=== PATIENT | male | born 2000 | race African-American/Black ===

== ENCOUNTER 2024-09-05 18:12 | Inpatient (IN) | payer SELFPAY ==
[2024-09-05] MEDS ORDERED: Ipratropium/Albuterol 3 ML NEB NEB PRN (18:46)
[2024-09-05] MEDS ORDERED: Ondansetron PF 4 MG/2 ML Vial IVP PRN (18:46)
[2024-09-05] MEDS: Sodium Chloride 0.9% 1,000 ML IV SCH (19:53)
[2024-09-05] MEDS: Piperacillin/Tazobactam 3.375 GM in Sodium Chloride 0.9% 100 ML IVPB SCH (19:54)
[2024-09-05] MEDS: Morphine 2 MG/ML VIAL SLOW IVP PRN (19:55)
[2024-09-05 20:27] LABS: #Basophils 0.06 10x3/uL (0.0-0.2); %Basophils 0.6 % (0.0-1.0); %Eosinophils 0.9 % (0.0-10.0); %Lymphocytes 24.2 % (21.0-51.0); %Monocytes 7.3 % (0.0-10.0); %Neutrophils 66.6 % (42.0-75.0); Hematocrit 43.2 % (42.0-52.0); Hemoglobin 14.8 g/dL (14.0-18.0); Mean Corpuscular HGB CONC 34.3 g/dL (32.0-36.0); Mean Corpuscular Volume 87.6 fL (78.0-98.0); Mean Platelet Volume 8.8 fL (7.4-10.4); Platelet Count 252 10x3/uL (130-400); RBC Distribution Width 13.2 % (11.5-14.5); Red Blood Cell (RBC) Count 4.93 mill/uL (4.70-6.10)
[2024-09-05 20:44] LABS: ALT (SGPT) 268 U/L (8-55); AST (SGOT) 117 U/L (5-34); Albumin 3.5 g/dL (3.5-5.0); Alkaline Phosphatase 181 U/L (40-110); Anion Gap 12 mmol/L (10-20); BUN (Urea Nitrogen) 8 mg/dL (8.9-20.6); Bilirubin, Total 1.1 mg/dL (0.2-1.2); Calc. Creatinine Clearance 1 mL/min (70-130); Calcium 8.8 mg/dL (7.8-10.44); Carbon Dioxide 23 mmol/L (22-29); Chloride 106 mmol/L (98-107); Estimated GFR 127; Globulin 2.9 g/dL (2.4-3.5); Glucose 105 mg/dL (70-105); Potassium 3.6 mmol/L (3.5-5.1); Protein, Total 6.4 g/dL (6.0-8.3); Sodium 137 mmol/L (136-145)
[2024-09-06] MEDS: Piperacillin/Tazobactam 3.375 GM in Sodium Chloride 0.9% 100 ML IVPB SCH (00:18)
[2024-09-06] MEDS: Piperacillin/Tazobactam 3.375 GM VIAL ONE (00:21)
[2024-09-06 05:07] LABS: #Basophils 0.04 10x3/uL (0.0-0.2); %Basophils 0.5 % (0.0-1.0); %Eosinophils 1.4 % (0.0-10.0); %Lymphocytes 30.8 % (21.0-51.0); %Monocytes 7.9 % (0.0-10.0); Hematocrit 48.1 % (42.0-52.0); Hemoglobin 16.1 g/dL (14.0-18.0); Mean Corpuscular HGB CONC 33.5 g/dL (32.0-36.0); Mean Corpuscular Hemoglobin 29.7 pg (27.0-31.0); Mean Corpuscular Volume 88.7 fL (78.0-98.0); Mean Platelet Volume 8.8 fL (7.4-10.4); Platelet Count 273 10x3/uL (130-400); RBC Distribution Width 13.5 % (11.5-14.5); Red Blood Cell (RBC) Count 5.42 mill/uL (4.70-6.10)
[2024-09-06 05:18] LABS: INR-International Normal Ratio 0.9; Prothrombin Time 12.6 sec (12.0-14.7)
[2024-09-06 05:19] LABS: PTT 30.1 sec (22.9-36.1)
[2024-09-06 05:23] LABS: Anion Gap 13 mmol/L (10-20); BUN (Urea Nitrogen) 7 mg/dL (8.9-20.6); Calc. Creatinine Clearance 1 mL/min (70-130); Calcium 9.4 mg/dL (7.8-10.44); Carbon Dioxide 26 mmol/L (22-29); Chloride 104 mmol/L (98-107); Estimated GFR 121; Glucose 100 mg/dL (70-105); Potassium 3.8 mmol/L (3.5-5.1); Sodium 139 mmol/L (136-145)
[2024-09-06 05:59] LABS: ALT (SGPT) 304 U/L (8-55); AST (SGOT) 123 U/L (5-34); Albumin 3.9 g/dL (3.5-5.0); Alkaline Phosphatase 198 U/L (40-110); Bilirubin, Direct 0.5 mg/dL (0.1-0.3); Bilirubin, Total 1.4 mg/dL (0.2-1.2); Protein, Total 7.4 g/dL (6.0-8.3)
[2024-09-06] MEDS ORDERED: Morphine 2 MG/ML VIAL ONE (12:10)
[2024-09-06] MEDS ORDERED: SUGAMMADEX SODIUM 200 MG/2 ML VIAL ONE ×2 (13:20→14:22)
[2024-09-06] MEDS ORDERED: PROPOFOL 20 ML ONE (13:20)
[2024-09-06] MEDS ORDERED: fentaNYL 50 mcg/mL 1 mL Vial ONE (13:20)
[2024-09-06] MEDS ORDERED: Rocuronium Bromide 10 MG/ML (10ML VIAL) ONE (13:20)
[2024-09-06] MEDS ORDERED: Ondansetron PF 4 MG/2 ML Vial ONE (13:20)
[2024-09-06] MEDS ORDERED: Lidocaine 1% PF 5 ML VIAL ONE (13:20)
[2024-09-06] MEDS ORDERED: Midazolam HCl 2 mg/2 ml Vial ONE (13:20)
[2024-09-06] MEDS ORDERED: Iopamidol 30 ML ONE (13:22)
[2024-09-06] MEDS ORDERED: Indomethacin 50 MG SUPP ONE ×2 (13:26→13:41)
[2024-09-06] MEDS ORDERED: PHENYLEPHRINE-NS 100 MCG/ML 10 ML SYRINGE ONE (13:57)
[2024-09-06] MEDS ORDERED: Dexamethasone 20 MG/5 ML VIAL ONE (13:58)
[2024-09-06] MEDS: traMADol HCl 50 MG TAB PO PRN (15:47)
[2024-09-07] MEDS: Acetaminophen 325 MG TAB PO PRN (00:37)
[2024-09-07 05:09] LABS: #Basophils Less than 0.03 10x3/uL (0.0-0.2); #Eosinophils Less than 0.03 10x3/uL (0.0-0.7); %Basophils 0.1 % (0.0-1.0); %Lymphocytes 9.2 % (21.0-51.0); %Monocytes 5.2 % (0.0-10.0); %Neutrophils 85.1 % (42.0-75.0); Hematocrit 43.5 % (42.0-52.0); Hemoglobin 14.9 g/dL (14.0-18.0); Mean Corpuscular HGB CONC 34.3 g/dL (32.0-36.0); Mean Corpuscular Hemoglobin 29.5 pg (27.0-31.0); Mean Corpuscular Volume 86.1 fL (78.0-98.0); Mean Platelet Volume 9.2 fL (7.4-10.4); Platelet Count 270 10x3/uL (130-400); RBC Distribution Width 13.2 % (11.5-14.5); Red Blood Cell (RBC) Count 5.05 mill/uL (4.70-6.10)
[2024-09-07 05:47] LABS: ALT (SGPT) 257 U/L (8-55); AST (SGOT) 88 U/L (5-34); Albumin 3.5 g/dL (3.5-5.0); Alkaline Phosphatase 178 U/L (40-110); Anion Gap 13 mmol/L (10-20); BUN (Urea Nitrogen) 11 mg/dL (8.9-20.6); Calc. Creatinine Clearance 1 mL/min (70-130); Calcium 8.9 mg/dL (7.8-10.44); Carbon Dioxide 21 mmol/L (22-29); Chloride 106 mmol/L (98-107); Estimated GFR 131; Globulin 3.2 g/dL (2.4-3.5); Glucose 92 mg/dL (70-105); Lipase 12 U/L (8-78); Potassium 3.9 mmol/L (3.5-5.1); Protein, Total 6.7 g/dL (6.0-8.3); Sodium 136 mmol/L (136-145)
[2024-09-07] MEDS: Morphine 2 MG/ML VIAL SLOW IVP SCH (17:23)
[2024-09-07] MEDS: Escitalopram Oxalate 10 mg Tablet PO SCH (21:07)
[2024-09-08] MEDS ORDERED: Midazolam HCl 2 mg/2 ml Vial ONE ×3 (13:55→15:43)
[2024-09-08] MEDS ORDERED: EPINEPHrine 1 MG/ML VIAL ONE (14:27)
[2024-09-08] MEDS ORDERED: Bupivacaine PF 0.5% 30 ML VIAL ONE (14:27)
[2024-09-08] MEDS ORDERED: PROPOFOL 40 ML ONE (14:42)
[2024-09-08] MEDS ORDERED: Albuterol HFA (OR) 200 PUFF INH ONE (14:42)
[2024-09-08] MEDS ORDERED: fentaNYL PF 100 MCG/2 ML SYRINGE ONE ×2 (14:42→15:55)
[2024-09-08] MEDS ORDERED: Lidocaine 2% PF 5 ML VIAL ONE (14:42)
[2024-09-08] MEDS ORDERED: Rocuronium Bromide 10 MG/ML (10ML VIAL) ONE (14:42)
[2024-09-08] MEDS ORDERED: Ketorolac Tromethamine 30 MG (1 mL) VIAL ONE (16:00)
[2024-09-08] MEDS: Ketorolac Tromethamine 30 MG (1 mL) VIAL IVP SCH (16:14)
[2024-09-08] MEDS ORDERED: fentaNYL 50 mcg/mL 1 mL Vial ONE (16:22)
[2024-09-08] MEDS: Acetaminophen 500 MG TAB PO SCH (16:58)
[2024-09-08] MEDS: traMADol HCl 50 MG TAB PO PRN (18:10)
[2024-09-08 18:37] VITALS: BP 135/70; TEMP 98.8
[2024-09-08] MEDS ORDERED: Ibuprofen 600 MG TAB PO PRN (23:59)
[2024-09-09] MEDS ORDERED: Escitalopram Oxalate 10 mg Tablet PO SCH (09:00)
== END 2024-09-08 18:39 | disposition home or self-care (01) | DRG 419 ==
LOC: SURG A 18:12
PROVIDERS: ADMIT Surgery; ATTEND Surgery
PROC: 0FC98ZZ Extirpation of Matter from Common Bile Duct, Via Natural or Artificial Opening Endoscopic (ICD-10-PCS; 2024-09-06)
PROC: 0FT44ZZ Resection of Gallbladder, Percutaneous Endoscopic Approach (ICD-10-PCS; principal; 2024-09-08)
DX: K80.60 Calculus of gallbladder and bile duct with cholecystitis, unspecified, without obstruction (principal); K76.0 Fatty (change of) liver, not elsewhere classified; F41.9 Anxiety disorder, unspecified; E66.01 Morbid (severe) obesity due to excess calories; Z90.49 Acquired absence of other specified parts of digestive tract
CPT/HCPCS: 36415; 74330; 76700; 80048; 80053; 80076; 83690; 85025; 85610; 85730; 86850; 86900; 86901; 88304; C1725; C1889; J0171; J0665; J1100; J1885; J2250; J2272; J2405; J2543; J2704; J3010; J7030; Q9967